=== PATIENT | male | born 1950 | race Caucasian/White ===

== ENCOUNTER 2021-06-28 06:52 | Emergency (ER) | payer OTHER, SELFPAY ==
[2021-06-28 06:58] VITALS: BP 147/72; PULSE 84; RESP 16; TEMP 37.8; O2SAT 97
--- NOTE | 2021-06-28 07:30 | DI.RAD_ITS ---
Exam(s) XR PORTABLE CHEST AP EXAM: XR PORTABLE CHEST AP CLINICAL HISTORY: covid +. TECHNIQUE: 2D digital imaging was performed. COMPARISON: No exams were available for comparison FINDINGS: LUNGS: Clear. No pleural abnormality seen. HEART: Normal. MEDIASTINUM: Normal. OTHER FINDINGS: None. IMPRESSION: No acute pulmonary findings. DATA REPOSITORY: RADIATION DOSE DELIVERED: Total DLP
--- NOTE | 2021-06-28 08:05 | ED.GENADUL_ITS ---
Discharge Plan Disposition Patient Disposition: HOME Condition: Good Discharge Details Clinical Impression: COVID ED Provider: Naseem Yu Home Meds and New Rx's Prescriptions: New lorazepam [Ativan] 0.5 mg tablet 0.5 mg PO BID PRN (Reason: anxiety) Qty: 10 RF: 0 Continued atorvastatin 40 mg Tablet 40 mg PO DAILY RF: 0 amlodipine 5 mg Tablet 5 mg PO DAILY RF: 0 tamsulosin 0.4 mg Capsule 0.4 mg PO DAILY RF: 0 Discharge Instructions Instructions: Viral Syndrome (ED), COVID-19 (Coronavirus Disease 2019) (ED) Additional Instructions: Home to rest. Our care management team will follow up with you regarding further instructions on your monoclonal antibody infusions. Tylenol and ibuprofen as needed for aches or pains or fever. May use the prescribed Ativan as needed for anxiety. Medical Decision Making <Vishal Scott DO - Last Filed: 06/28/21 08:10> 71-year-old male with a past medical history of hypertension, high cholesterol presents today for evaluation of Covid symptoms. Patient was diagnosed with Covid 8 to 9 days ago, and since then he has had continued mild cough, intermittent fevers, chills, and arthralgias. Patient does admit to feeling mildly anxious, and has had some difficulty sleeping, and is requesting an anxiolytic for this. He denies any chest pain, pleuritic chest pain, hemoptysis, vomiting, diarrhea. He states that he otherwise feels okay. He denies any significant shortness of breath. He states he is interested in receiving immunoglobulin therapy if it is available. Patient did not receive hi s Covid vaccine. No other complaints at this time. No other modifying factors. Physical exam is notably unremarkable and very reassuring. Temperature is slightly high, respirations are stable at 16, no tachycardia. Oxygenation is 97%. Minimal crackle in right lower lung field. Patient is a candidate for immunoglobulin therapy. We will start this here. We will get a chest x-ray to evaluate the small crackle noted. Patient otherwise notably stable. Patient will be signed out to my colleague Dr. Naseem Yu follow-up on imaging and reassessment after therapy administration. <Naseem Yu MD - Last Filed: 06/28/21 09:35> Patient signout from Dr. Scott. Please see his note regarding details of the presentation, exam and plan of care. Chest x-ray unremarkable. Patient improved with fluids, acetaminophen. He received a monoclonal antibody infusion and we will ask emergency care attendant to arrange subsequent follow-up. Patient continues to note significant anxiety which she has treated with lorazepam in the past. We will prescribe him a small number of Ativan for home use. Patient stable and appropriate for discharge. HPI <Vishal Scott DO - Last Filed: 06/28/21 08:10> General Date/Time Provider Initiated Documentation: 06/28/21 06:56 . HPI Narrative: 71-year-old male with a past medical history of hypertension, high cholesterol presents today for evaluation of Covid symptoms. Patient was diagnosed with Covid 8 to 9 days ago, and since then he has had continued mild cough, intermittent fevers, chills, and arthralgias. Patient does admit to feeling mildly anxious, and has had some difficulty sleeping, and is requesting an anxiolytic for this. He denies any chest pain, pleuritic chest pain, hemoptysis, vomiting, diarrhea. He states that he otherwise feels okay. He denies any significant shortness of breath. He states he is interested in receiving immunoglobulin therapy if it is available. Patient did not receive his Covid vaccine. No other complaints at this time. No other modifying factors. Related Data Home Medications Medication Instructions Recorded Confirmed amlodipine 5 mg PO DAILY 06/28/21 06/28/21 atorvastatin 40 mg PO DAILY 06/28/21 06/28/21 lorazepam [Ativan] 0.5 mg PO BID PRN #10 tab 06/28/21 tamsulosin 0.4 mg PO DAILY 06/28/21 06/28/21 Previous Rx's Medication Instructions Recorded lorazepam [Ativan] 0.5 mg PO BID PRN #10 tab 06/28/21 Allergies Allergy/AdvReac Type Severity Reaction Status Date / Time No Known Allergies Allergy Unverified 06/28/21 07:04 General Stated Complaint: RespSymp NICHOLAS: 3 Review of Systems <Vishal Scott DO - Last Filed: 06/28/21 08:10> All systems reviewed & are unremarkable except as noted in HPI and below PFSH <Vishal Scott DO - Last Filed: 06/28/21 08:10> Social History Smoking/Tobacco Use Status: Never Smoking risk assessment performed?: Yes Alcohol Intake: never Substance use type: does not use Do you feel safe at home: Yes Do you feel safe in your relationship?: Yes Exam <Vishal Scott DO - Last Filed: 06/28/21 08:10> Narrative Exam Narrative: 1.Const: Well-nourished, Well-developed, appearing stated age 2.Eyes: PERRL, no conjunctival injection, and symmetrical lids. 3.ENT: Atraumatic external nose and ears. Moist MM. Neck: Symmetric, trachea midline, No thyromegaly. 4.CVS: +S1/S2, No murmurs or gallops. Peripheral pulses 2+ and equal in all extremities. Brisk capillary refill in all extremities. 5.RESP: Unlabored respiratory effort. Minimal crackle in the right lower lung field. No rhonchi or wheezes. 6.GI: Soft, Nontender/Nondistended, No hepatosplenomegaly. No guarding or rebound. 7.MSK: Normocephalic/Atraumatic, Extremities w/o deformity or ttp No cyanosis or clubbing, Normal movement of all extremities 8.Skin: Warm, Dry. No rashes or lesions. 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 Sensation grossly intact, no focal neurologic deficits. 10.Psych: (AAO) x3. Appropriate mood and affect Course <Vishal Scott DO - Last Filed: 06/28/21 08:10> Vital Signs Vital signs: Vital Signs Temperature 37.8 C H 06/28/21 06:58 Pulse 84 06/28/21 06:58 Respiratory Rate 16 06/28/21 06:58 Blood Pressure 147/72 H 06/28/21 06:58 Pulse Oximetry 97 06/28/21 06:58 Temperature 37.8 C H 06/28/21 06:58 Temperature Source Oral 06/28/21 06:58 Pulse 84 06/28/21 06:58 Respiratory Rate 16 06/28/21 06:58 Respiratory Effort Non-Labored 06/28/21 07:07 Respiratory Depth Normal 06/28/21 07:07 Blood Pressure 147/72 H 06/28/21 06:58 Blood Pressure Position Sitting 06/28/21 06:58 Pulse Oximetry 97 06/28/21 06:58 Oxygen Delivery Method Room Air 06/28/21 06:58 Oxygen Flow Rate 0 06/28/21 06:58 Pain Level 0 06/28/21 06:58 Sign Out <Vishal Scott DO - Last Filed: 06/28/21 08:10> Sign Out Data: Sign Out Comment: Pending x-ray and immunoglobulin infusion Last updated by Vishal Scott DO at 06/28/21 08:11
[2021-06-28] MEDS: Acetaminophen 500 MG TAB 650 MG PO (08:42)
[2021-06-28] MEDS: Normal Saline 500 ML IV (08:43)
--- NOTE | 2021-06-28 10:15 | DI.VRAD_ITS ---
PROCEDURE INFORMATION: Exam: XR Chest Exam date and time: 06/28/2021 7:32 AM Age: 71 years old Clinical indication: Other: Dysarthria, stroke like symptoms TECHNIQUE: Imaging protocol: XR of the chest. Views: 1 view. COMPARISON: No relevant prior studies available. FINDINGS: Lungs: Unremarkable. No consolidation. Pleural spaces: Unremarkable. No pleural effusion. No pneumothorax. Heart/Mediastinum: Unremarkable. No cardiomegaly. Bones/joints: Unremarkable. IMPRESSION: No acute findings. Dictated and Authenticated by: Nora Whitney MD. Ordering:OUMOU Rodgers MD
[2021-06-28 12:12] VITALS: BP 138/70; PULSE 76; RESP 18; TEMP 36.9; O2SAT 96
--- NOTE | 2021-06-28 17:59 | NUR.NOTE ---
referral sent to care management/ covid infusiion for monoco antibody infusion
--- NOTE | 2021-06-29 13:34 | PDOC.ERCMPRO ---
- If Service Date Differs Date of service: 06/29/21 Time of Service: 13:34 Care Management Progress Note Calos is seen in the ED on 06/28/21 for symptoms of Covid. While in the ED, he received a monoclonal antibody infusion and was told that CM would schedule an appointment for an additional infusion. CM contacts Calos to advise him that monoclonal antibody infusion is a onetime infusion only.
== END 2021-06-28 11:49 | disposition home or self-care (01) ==
LOC: ER 09:47
PROVIDERS: Emergency Provider Emergency Medicine
DX: U07.1 COVID-19 (principal); F41.9 Anxiety disorder, unspecified
CPT/HCPCS: 96360; 96361; 96365; 99284; 71045